=== PATIENT | male | born 1985 | race Caucasian/White ===

== ENCOUNTER 2024-09-28 11:09 | Emergency (ER) | payer SELFPAY ==
[2024-09-28 11:27] VITALS: BP 140/110; PULSE 73; RESP 17; TEMP 37.2; O2SAT 100
--- NOTE | 2024-09-28 11:57 | ED.GENADULT ---
HPI - General Adult General Chief complaint: Upper Respiratory Infection Stated complaint: cough, chills, left ear Time Seen by Provider: 09/28/24 11:38 History of Present Illness HPI narrative: 38-year-old male presenting to the emergency department for evaluation for 7 days of illness in 3 days of left-sided ear pain. Patient reports cough congestion body aches and fatigue. Related Data Home Medications ?Medication ?Instructions ?Recorded ?Confirmed ?Last Taken ?Type cholecalciferol (vitamin D3) 50 50 mcg PO DAILY 03/07/20 Unknown History mcg (2,000 unit) capsule clomiphene citrate 50 mg tablet 50 mg PO .q other day 03/07/20 Unknown History Allergies Allergy/AdvReac Type Severity Reaction Status Date / Time No Known Allergies Allergy Verified 09/28/24 11:34 Review of Systems Review of Systems: All systems reviewed & are unremarkable except as noted in HPI and below PMFSH Family History Family History (Updated 03/07/20 @ 15:06 by Lyssa Armas, [facility]) Mother Diabetes mellitus Hypertension Sibling Diabetes mellitus Father Hypertension Exam Narrative: APPEARANCE: Well appearing, no pain, no distress, well-nourished. HEAD: normocephalic, atraumatic. EYES: PERRLA/EOMI, conjunctivae clear. NOSE: Normal no drainage EARS: Left otitis media THROAT: Pharynx clear, no exudate. NECK: Supple. No adenopathy, no masses. RESPIRATORY: Airway patent, respirations nonlabored. Clear to auscultation bilaterally, no rales, rhonchi, wheezing. CARDIOVASCULAR: Regular rate and rhythm without murmurs rubs or gallops. ABDOMINAL: Soft, nontender, nondistended, normal bowel sounds MUSCULOSKELETAL: Moves all extremities. Strength/ROM intact, No edema, No calf tenderness. NEURO: Alert. Cranial nerves II through XII intact. Good gait. Good coordination SKIN: Warm, dry. Normal Color Course Vital Signs Vital signs: Vital Signs Temperature 98.9 F 09/28/24 11:27 Pulse Rate 73 09/28/24 11:27 Respiratory Rate 17 09/28/24 11:27 Blood Pressure 140/110 H 09/28/24 11:27 Pulse Oximetry 100 09/28/24 11:27 Oxygen Delivery Room Air 09/28/24 11:27 Temperature 98.9 F 09/28/24 11:27 Pulse Rate 73 09/28/24 11:27 Respiratory Rate 17 09/28/24 11:27 Blood Pressure 140/110 H 09/28/24 11:27 Pulse Oximetry 100 09/28/24 11:27 Oxygen Delivery Room Air 09/28/24 11:27 Medical Decision Making MDM Narrative Medical decision making narrative: 38-year-old male presents emergency department for evaluation for left ear pain. Patient does have left-sided otitis media. Patient was started on antibiotics in the emergency department. All questions concerns were addressed patient was well-appearing at time of discharge Differential Diagnosis Differential Diagnosis: influenza, RSV, COVID, pneumonia, otitis media, otitis externa, mastoiditis Vital Signs Vital Signs: Vital Signs Temperature 98.9 F 09/28/24 11:27 Pulse Rate 73 09/28/24 11:27 Respiratory Rate 17 09/28/24 11:27 Blood Pressure 140/110 H 09/28/24 11:27 Pulse Oximetry 100 09/28/24 11:27 Oxygen Delivery Room Air 09/28/24 11:27 Temperature 98.9 F 09/28/24 11:27 Pulse Rate 73 09/28/24 11:27 Respiratory Rate 17 09/28/24 11:27 Blood Pressure 140/110 H 09/28/24 11:27 Pulse Oximetry 100 09/28/24 11:27 Oxygen Delivery Room Air 09/28/24 11:27 Lab Data Labs: Lab Results 09/28/24 Range/Units 11:44 Influenza A (RT-PCR) Negative (Negative) Influenza B (RT-PCR) Negative (Negative) RSV (RT-PCR) Negative (Negative) SARS-CoV-2 RNA (RT-PCR) Negative (Negative) Discharge Plan Discharge Clinical Impression: URI, acute, Otitis media Patient Disposition: Home, Self-Care Condition: Stable Instructions: Antibiotic Form, Ear Infection (AC), Barotrauma (ED), Viral Syndrome (ED) Additional Instructions: Continue to take Tylenol and ibuprofen for pain control. Decongestant as needed to help with congestion. Antibiotic as directed until completed. Have close follow-up with a physician a few are having worsening symptoms. You may also need follow-up with ENT. Patient Language: Sami Prescriptions: New amoxicillin-pot clavulanate 875-125 mg tablet 1 tablet PO Q12H 7 Days Qty: 14 0RF azithromycin 250 mg tablet See Rx Instructions .ROUTE .COMPLEX Qty: 6 0RF Rx Instructions: For 250 mg dose pack: take 500 mg today (day 1), then 250 mg for 4 days (days 2-5) No Action cholecalciferol (vitamin D3) 50 mcg (2,000 unit) capsule 50 mcg PO DAILY clomiphene citrate 50 mg tablet 50 mg PO .q other day Follow-up/Referrals: Anton Ayala MD [Physician] - Hossein Dewitt DO [Physician] -
[2024-09-28] MEDS: AMOXICILLIN/CLAVULANATE K 875-125 MG TAB 1 TABLET PO (12:00)
[2024-09-28] MEDS: AZITHROMYCIN 250 MG TABLET 500 MG PO (12:00)
[2024-09-28 12:25] LABS: Influenza A QL RT-PCR Negative (Negative); Influenza B QL RT-PCR Negative (Negative); RSV RNA, RT-PCR Negative (Negative); SARS-CoV-2 RNA PCR Negative (Negative)
== END 2024-09-28 12:05 | disposition home or self-care (01) ==
PROVIDERS: Emergency Provider Emergency Medicine
DX: J06.9 Acute upper respiratory infection, unspecified (principal); H66.92 Otitis media, unspecified, left ear; Z20.822 Contact with and (suspected) exposure to COVID-19
CPT/HCPCS: 87637; 99283; A9270